=== PATIENT | female | born 1940 | race Caucasian/White ===

== ENCOUNTER → 2017-12-23 | Outpatient (CLI) | payer MEDICARE, BC, OTHER ==
[~2017-12-23] MED LIST: ADULT LOW DOSE81 MG PO; ALEVE220 MG PO; CALCIUM 600 +1 EAC5 PO; CENTRUM SILVER1 EAC1 PO; FEXOFENADINE-P1 EACH PO; GLUCOPHAGE500 MG PO; SIMVASTATIN40 MG PO; TUMS E.S.750 MG PO; ZANTAC 150MG T150 M1 PO
== END ==
LOC: M.RAD 11-13 10:55
DX: Z12.31 Encounter for screening mammogram for malignant neoplasm of breast (principal); M85.89 Other specified disorders of bone density and structure, multiple sites; Z78.0 Asymptomatic menopausal state

== ENCOUNTER → 2019-01-08 | Outpatient (CLI) | payer MEDICARE, BC, OTHER | LOC: M.RAD 12-25 15:00 | DX: Z12.31 Encounter for screening mammogram for malignant neoplasm of breast (principal) ==

== ENCOUNTER → 2019-01-15 | Outpatient (CLI) | payer MEDICARE, BC, OTHER | LOC: M.ULTRA 13:50 | DX: N60.41 Mammary duct ectasia of right breast (principal) ==

== ENCOUNTER → 2020-01-11 | Outpatient (CLI) | payer MEDICARE, BC | LOC: M.RAD 09:00 | PROVIDERS: ATTEND Family Medicine | DX: Z12.31 Encounter for screening mammogram for malignant neoplasm of breast (principal) ==

== ENCOUNTER → 2021-01-16 | Outpatient (CLI) | payer MEDICARE, BC | LOC: M.RAD 01-02 09:00 | PROVIDERS: ATTEND Family Medicine | DX: Z12.31 Encounter for screening mammogram for malignant neoplasm of breast (principal) ==